=== PATIENT | female | born 1960 ===

== ENCOUNTER 2024-03-16 15:12 | Outpatient (CLI) | payer MEDICARE, SELFPAY ==
--- NOTE | ~2024-03-16 | XR_ITS ---
XR knee RT 3V 03/16/2024 15:47 Indication: Right knee pain Procedure: 3 views right knee Comparison: No prior studies for comparison. Findings: No fracture, subluxation or dislocation. No joint effusion. No foreign bodies. Impression: 1: No significant bone or joint abnormality. Reviewed, dictated and finalized at location B. LEAD Impression: 1: No significant bone or joint abnormality.
== END 2024-03-16 15:13 | disposition home or self-care (01) ==
LOC: MICIMG 15:16
PROVIDERS: PCP Nurse Practitioner Family; Visit Provider Nurse Practitioner Family
DX: M25.561 Pain in right knee (principal)
CPT/HCPCS: 73562